=== PATIENT | male | born 1980 | race Two or more races ===

== ENCOUNTER 2018-10-23 10:07 | Emergency (ER) | payer SELFPAY ==
[2018-10-23] MEDS ORDERED: DEXAMETHASONE SOD PHOS INJ 10 MG/1 ML VIAL IM ONE (10:51)
[2018-10-23] MEDS ORDERED: LIDOCAINE 1% INJ-PF (10 MG/ML) 30 ML SDV NEB ONE (10:51)
[2018-10-23] MEDS ORDERED: ALBUTEROL SULFATE HFA (90 MCG/PUFF) 8 GM MDI (1 MDI/ER DISP) IH ONE (11:40)
--- NOTE | 2018-10-23 11:42 | ER Document Report ---
HPI - HPI Time Seen by Provider: 10/23/18 10:32 Pain Level: 5 Notes: Patient is an otherwise healthy 38-year-old male who presents with chief complaint of sore throat over the last 2 days. Patient denies any cough, congestion, fever or other symptoms. Patient reports history of pharyngitis in the past. Patient reports he is able to swallow without difficulty however he does have pain with swallowing. Patient speaking in full and complete sentences with a normal voice. Past Medical History - General Information source: Patient - Social History Smoking Status: Never Smoker Frequency of alcohol use: None Drug Abuse: None Family History: Reviewed & Not Pertinent - Medical History Medical History: Negative Surgical Hx: Negative - Immunizations Immunizations up to date: Yes Vertical Provider Document - CONSTITUTIONAL Notes: PHYSICAL EXAMINATION: GENERAL: Well-appearing, well-nourished and in no acute distress. HEAD: Atraumatic, normocephalic. EYES: Pupils equal round extraocular movements intact, conjunctiva are normal. ENT: Nares patent, mild tonsillar swelling with exudates, no evidence of devyn tonsillar abscess. NECK: Normal range of motion LUNGS: No respiratory distress Musculoskeletal: Normal range of motion NEUROLOGICAL: Normal speech, normal gait. PSYCH: Normal mood, normal affect. SKIN: Warm, Dry, normal turgor, no rashes or lesions noted. - INFECTION CONTROL TRAVEL OUTSIDE OF THE [place] IN LAST 30 DAYS: No Course - Re-evaluation Re-evalutation: Rapid strep is negative, patient given 10 mg of IM Decadron. Strict ED return precautions were discussed to include difficulty swallowing, unable to swallow, or difficulty breathing. Patient verbalizes understanding of same. Discussed that throat culture is pending. - Vital Signs Vital signs: Temp Pulse Resp BP Pulse Ox 100.5 F H 94 20 158/74 H 99 10/23/18 10:11 10/23/18 10:11 10/23/18 10:11 10/23/18 10:11 10/23/18 10:11 Discharge - Discharge Clinical Impression: Sore throat Fever Qualifiers: Fever type: unspecified Qualified Code(s): R50.9 - Fever, unspecified Condition: Stable Disposition: HOME, SELF-CARE Additional Instructions: SORE THROAT: Sore throats may be caused by viruses, bacteria, or fungi. Most are due to a virus, and must get better on their own. Bacterial sore throats, particularly those due to "strep," need treatment with antibiotics. If an antibiotic is prescribed, be sure to take the medication for a full 10 days. Failure to take the antibiotic can result in complications such as rheumatic fever. Sometimes, an injection of antibiotics is given instead of pills or liquid. This single "shot" is equal in effectiveness to the oral medication. To relieve symptoms, take acetaminophen for pain. Sip clear liquids frequently, or eat popsicles or ice chips. Anesthetic sprays or lozenges may help. Make sure the air in the room is not too dry. Avoid using decongestants or antihistamines. Call the doctor if there is no improvement in two days, or if you have difficulty breathing, increasing throat pain, high fever, rash, or frequent vomiting. STEROID MEDICATION: You have been given a medicine of the cortisone/steroid class. This medication is used to control inflammation or allergy. It is usually only given for a short period of time, until the acute process subsides. There are usually no side effects from short-term use of cortisone-like medications. Some persons feel an increased sense of well-being and are not sleepy at bedtime. Long-term use of cortisone medications is best avoided, unless required for a severe condition. If your condition does not remit, or relapses after the course of corticosteroid medication, you should consult your physician. FOLLOW-UP CARE: If you have been referred to a physician for follow-up care, call the physicians office for an appointment as you were instructed or within the next two days. If you experience worsening or a significant change in your symptoms, notify the physician immediately or return to the Emergency Department at any time for re-evaluation. The rapid strep test done today was negative. We will send to the testing for a culture, someone will call you in the next 48-72 hours if this is abnormal. In the meanwhile you have been given a shot of Decadron. This is a steroid that would last in her system for 3 days. This will help reduce inflammation in the throat area. Please continue to take ibuprofen 600 mg every 6 hours for pain, fever and inflammation. Drink plenty of fluids. Forms: Return to Work
[2018-10-23 12:04] VITALS: BP 152/92
== END 2018-10-23 12:19 | disposition home or self-care (01) ==
LOC: ER 10:07
DX: J02.9 Acute pharyngitis, unspecified (principal); R50.9 Fever, unspecified; R13.10 Dysphagia, unspecified
CPT/HCPCS: 94640; 99283; 96372; 87070; 87880; J3490 ×2; J1100